=== PATIENT | male | born 1950 | race Caucasian/White ===

== ENCOUNTER 2023-12-01 10:48 | Observation (INO) ==
[2023-12-01] MEDS ORDERED: Iodixanol (CONTRAST) 320 MG/ML 100 ML SDV IV ONE (11:09)
[2023-12-01 11:12] LABS: ABS Eosinophils 0.2 10^3/uL (0.0-0.5); ABS Lymphocytes 1.5 10^3/uL (1.0-4.8); ABS Monocytes 0.9 10^3/uL (0.0-1.1); ABS Nucleated RBC 0.01 10^3/ul; Eosinophil % 2.1 %; Hematocrit 40.2 % (38-53); Hemoglobin 13.5 g/dL (13.2-16.3); Lymphocyte % 17.4 %; Mean Corpuscular Hgb Conc 33.6 g/dL (31-36); Mean Corpuscular Volume 95.3 fL (80-97); Mean Platelet Volume 8.9 fL (7.5-11.2); Nucleated Red Blood Cells % 0.1 %/100WBC (0.0-0.8); Platelet Count 188 10^3/uL (150-450); Red Blood Count 4.22 10^6/uL (4.06-5.63); Red Cell Distribution Width 13.4 % (12-17); White Blood Count 8.6 10^3/uL (3.6-10.2)
[2023-12-01 11:50] LABS: Albumin 4.2 g/dL (3.2-5.2); Albumin/Globulin Ratio 1.8 (1-3); Creatinine, Serum 1.15 mg/dL (0.67-1.17); Direct Bilirubin 0.1 mg/dL (0.03-0.18); Globulin 2.4 g/dL (2-4); HDL Cholesterol 52.3 mg/dL; Indirect Bilirubin 0.5 mg/dL (0.3-1.0); Potassium 5.1 mmol/L (3.5-5.0); Total Bilirubin 0.6 mg/dL (0.2-1.0); Total Protein 6.6 g/dL (6.4-8.9); eGFR CKD-EPI 67.2 (>60)
[2023-12-01] MEDS: NS 0.9% 1000 ml BAG 1,000 ML IV ONE (12:20)
[2023-12-01 12:27] LABS: Activated Partial Thrombo Time 25.8 seconds (26.0-38.0); INR 1.05 (0.83-1.13)
[2023-12-01 12:52] LABS: Urine Appearance Clear; Urine Bilirubin Negative (Negative); Urine Blood Negative (Negative); Urine Color Colorless; Urine Glucose Negative (Negative); Urine Ketones Negative (Negative); Urine Nitrite Negative (Negative); Urine Protein Negative (Negative); Urine Specific Gravity 1.023 (1.002-1.030); Urine Urobilinogen Negative (Negative)
[2023-12-01 14:34] LABS: Testosterone Total 83.67 ng/dL (240-950)
[2023-12-01 14:37] LABS: TSH Ultra Thyroid Stim Horm 1.71 mcIU/mL (0.34-5.60)
[2023-12-01 14:39] LABS: Free T4 0.68 ng/dL (0.61-1.12)
[2023-12-01] MEDS ORDERED: Albuterol HFA INHALER 8 gm MDI INH PRN (15:51)
[2023-12-01] MEDS: Gadoteridol (CONTRAST) 279.3 MG/ML 10 ML IV ONE (22:39)
[2023-12-02 05:54] LABS: Potassium 4.7 mmol/L (3.5-5.0)
[2023-12-02] MEDS: OSIMERTINIB MESYLATE 80 MG PO SCH (08:44)
[2023-12-02] MEDS: Sulfur Hexaflouride MICROSPHR 25 MG VIAL IV ONE (13:43)
[2023-12-02 15:00] VITALS: BP 121/72
== END 2023-12-02 16:55 | disposition home or self-care (01) ==
LOC: EDHOLD 10:48 → ED 10:48 → MEDTELE 15:22
PROVIDERS: ADMIT Hospitalist; ATTEND Hospitalist